=== PATIENT | male | born 1990 | race Caucasian/White ===

== ENCOUNTER 2017-02-03 23:55 | Emergency (ER) | payer MEDICAID ==
[~2017-02-03] VITALS: Ht 185.4 cm; Wt 145.1 kg
[2017-02-04] MEDS ORDERED: [UNRECOGNIZED DRUG - OTHER] (00:13)
[2017-02-04] MEDS ORDERED: TRILIPTAL (00:14)
[2017-02-04] MEDS ORDERED: COGENTIN (00:14)
[2017-02-04] MEDS: hydrOXYzine HCL 25 MG TABLET PO ONE (00:43)
--- NOTE | 2017-02-04 00:44 | NUR ---
Pt states he is prone to panic attacks, can't take benzos due to prior substance abuse problem. Asked MD for RX for hydroxyzine. Gave pt RX and d/c instructions, verbalized understanding.
[2017-02-04] MEDS ORDERED: hydrOXYzine HCL 25 MG TABLET ONE (00:52)
== END 2017-02-04 00:51 | disposition home or self-care (01) ==
LOC: ER 02-04 00:11
DX: F41.9 Anxiety disorder, unspecified (principal); F31.9 Bipolar disorder, unspecified
CPT/HCPCS: A4663